=== PATIENT | male | born 1990 ===

== ENCOUNTER → 2016-12-07 | Outpatient (REF) | payer OTHER ==
[2016-12-07 10:13] LABS: % NORMAL FORMS < 4 % (>=4); IMMOTILITY 91 %; NON PROGRESSIVE MOTILITY (c) 8 %; PROGRESSIVE MOTILITY (a) 1 % (>=32); SPERM# 76.8 M/Ejac (33-46); TOTAL FUNCTIONAL 0 M/Ejac.; TOTAL MOTILITY 9 % (>=40); TOTAL PROGRESSIVE SPERM 0.8 M/Ejac.
== END ==
LOC: M LAB REF 09:47
PROVIDERS: ATTEND Physician Assistant
DX: N46.9 Male infertility, unspecified (principal)